=== PATIENT | male | born 1990 | race Caucasian/White ===

== ENCOUNTER 2020-04-29 16:53 | Emergency (ER) | payer SELFPAY ==
[~2020-04-29] VITALS: Ht 177.8 cm; Wt 75.0 kg
[2020-04-29 17:49] VITALS: BP 119/79
--- NOTE | 2020-04-29 18:40 | NUR ---
pt signed out ama
== END 2020-04-29 18:44 | disposition left against medical advice (07) ==
LOC: ED 18:38
DX: R51.9 Headache, unspecified (principal); R42 Dizziness and giddiness; H53.149 Visual discomfort, unspecified
CPT/HCPCS: 99281